=== PATIENT | female | born 1965 | race Caucasian/White ===

== ENCOUNTER 2024-06-03 12:27 | Outpatient (REF) | payer BC, SELFPAY ==
[2024-06-03 17:38] LABS: MANUAL DIFF FLAG NO
[2024-06-03 17:58] LABS: Basophils Percent Auto 0.8 % (0-2); Eosinophils Absolute Auto 0.1 X10*3/uL (0.0-0.4); Eosinophils Percent Auto 1.8 % (0-4); Hematocrit 37.5 % (37.0-47.0); Hemoglobin 12.5 g/dl (12.0-16.0); Imm Gran Abs Auto 0.01 X10*3/uL (0.00-0.03); Imm Gran Pct Auto 0.2 % (0.0-0.4); Lymphocytes Absolute Auto 1.5 X10*3/uL (1.2-4.9); Lymphocytes Percent Auto 31.2 % (20-40); Mean Corpuscular HGB Conc 33.3 g/dl (31.0-35.0); Mean Platelet Volume 10.6 fL (9.4-12.3); Monocytes Absolute Auto 0.4 X10*3/uL (0.1-1.2); Monocytes Percent Auto 8.5 % (2-11); Neutrophils Absolute Auto 2.8 x10*3/uL (2.0-8.3); Neutrophils Percent Auto 57.5 % (45-73); Platelet Count 267 X10*3/uL (160-400); Red Blood Count 4.31 X10*6/uL (4.20-5.50); Red Cell Distribution Width 12.8 % (11.0-16.0); White Blood Count 4.9 X10*3/uL (4.8-10.8)
[2024-06-03 18:00] LABS: Appearance Urine Clear; Color Urine Yellow; Glucose Urine UA Negative (Negative); Leukocyte Esterase Urine Negative (Negative); Nitrite Urine Negative (Negative); PH 7.5 (5.0-9.0); Urine Blood Negative (Negative); Urine Ketones Negative (Negative); Urine Protein Negative (Neg-Trace)
[2024-06-03 18:05] LABS: Bacteria Urine None Seen (None Seen); Hyaline Casts Urine 0-2 /LPF (0-2); RBC Urine 0-2 /HPF (0-2); Squamous Epithelial Cell Urine 0-2 /HPF (0-2); WBC Urine 0-5 /HPF (0-5)
[2024-06-03 18:11] LABS: Creatinine Urine 45.57 mg/dL; Total Protein Urine Random < 7 mg/dL (<12)
[2024-06-03 18:12] LABS: Alanine Aminotransferase 68 U/L (0-31); Aspartate Amino Transferase 54 U/L (5-31); C Reactive Protein < 0.04 mg/dL (< or = 0.50); Estimated Glomerular Filt Rate > 60
[2024-06-03 18:46] LABS: Erythrocyte Sedimentation Rate 7 MM/HR (0-20)
[2024-06-04 08:08] LABS: HBc Num1 0.06 S/CO (0.00-0.79); HBsAGNum1 0.43 S/CO (0.00-0.99); Hepatitis B Core Antibody Nonreactive (Nonreactive); Hepatitis B Surface Antigen Negative (Negative); ~HepC Num1 0.11 S/CO (0.00-0.79); ~Hepatitis B Surface Antibody REACTIVE (Nonreactive); ~Hepatitis C Antibody Nonreactive (Nonreactive)
[2024-06-05 11:24] LABS: Complement C3 111 mg/dL (83-193)
[2024-06-05 15:24] LABS: Anti DNA DS Antibody <1 IU/mL; SM/Ribonucleoprotein Ab <1.0 NEG AI (<1.0 NEG); Smith Protein <1.0 NEG AI (<1.0 NEG)
[2024-06-06 13:38] LABS: TS Negative Control Passed; TS Panel A 0; TS Panel B 1; TS Positive Control Passed; TSpotTB Negative (Negative)
[2024-06-07 14:08] LABS: DNAds, Crithidia Antibody Negative (Negative)
[2024-06-09 10:04] LABS: Anti Nuclear Antibody Screen POSITIVE (NEGATIVE)
== END 2024-06-03 12:28 | disposition home or self-care (01) ==
LOC: HO.HKASLDS 12:27
PROVIDERS: Visit Provider Internal Medicine Rheumatology
DX: M32.9 Systemic lupus erythematosus, unspecified (principal); Z79.60 Long term (current) use of unspecified immunomodulators and immunosuppressants
CPT/HCPCS: 36415; 81001; 82565; 82570; 84156; 84450; 84460; 85025; 85652; 86038; 86039; 86140; 86160; 86225; 86235; 86255; 86481; 86704; 86706; 86803; 87340

== ENCOUNTER 2024-06-03 12:27 | Outpatient (AMB) | payer BC, SELFPAY ==
--- NOTE | 2024-06-03 12:29 | MHC.OFFVIS ---
Vital Signs 06/03/24 12:31 Height 5 ft 5 in Weight 134 lb 8 oz BMI 22.4 BP 122/68 Blood Pressure Location Lt brachial Position Sitting Pulse 71 Pulse Source Pulse Oximeter Pulse Oximetry (%) 97 Oxygen Delivery Method Room Air Intake Visit Reasons: Lupus Allergies bee pollen Allergy (Unknown, Verified 06/03/24 12:35) Unknown Penicillins Allergy (Unknown, Verified 06/03/24 12:35) unk HPI HPI Lupus: Details: Last MTX dose January 26. She has not had recurrence of cutaneous lupus. She feels well on benlysta weekly SC injections and HCQ 300mg daily. Taking more effort to do things. 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 On two occasions she had tempratures 99.2F February and 99.8F. No oral ulcers. She had a ulceration in left nostril, which resolved. She continues to have malar rash, which Dermatology told her is remnant of a prior cutaneous lupus flare. She denies dyspnea, pleurisy, urinary symptoms and joint swelling. She has pain in left 3rd and 4th palmar aspect of MCPs with intermittent triggering. She had MRI of left shoulder and left elbow. Left elbow MRI reveals severe distal biceps tendinopathy/chronic partial tear with associated tenosynovitis or biceps radial bursitis. Mild common extensor origin tendinopathy without tear. Left shoulder MRI reveals high-grade partial-thickness bursal surface tear of the anterior insertional fibers of the supraspinatus. Full-thickness perforation is possible, given the fluid in the subacromial/subdeltoid space. If there is no full-thickness rotator cuff tear, then the subacromial/subdeltoid fluid may be explained by bursitis related to acromioclavicular osteoarthritis and os acromiale. She will be seeing orthopedic surgeons for this separate areas in the next 2 weeks. Review of Systems Const All systems reviewed & are unremarkable except as noted in HPI and below Physical Exam Vital Signs: Last Vital Signs Pulse 71 06/03/24 12:31 BP 122/68 06/03/24 12:31 Pulse Ox 97 06/03/24 12:31 Oxygen Delivery Method Room Air 06/03/24 12:31 BMI result Body Mass Index 22.4 Const Other: General: Comfortable CVS: RRR Respiratory: clear to auscultation bilaterally. Good respiratory effort Skin: Telangiectasia on cheeks present. She has a lesion that appears like a scab in her occipital scalp MSK: Tender left 3rd and 4th palmar aspect of MCP. No nodule present. No triggering observed. No synovitis of any joint. Good range of motion of upper extremities and lower extremities. Assessment & Plan Assessment & Plan (1) Discoid lupus erythematosus: Comment: Affecting face, scalp, upper extremities is controlled on Benlysta SC and hydroxychloroquine. 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 She also has a discoid lesion occipital scalp that has not improved with topical betamethasone. Code(s): L93.0 - Discoid lupus erythematosus Category: Medical Plan: Continue Benlysta subcutaneous injection weekly Continue hydroxychloroquine 300 mg daily. Requesting eye exam for hydroxychloroquine surveillance. After lab results are back, I will send 90 day prescription to her pharmacy Labs for systemic disease activity and drug monitoring ordered I have asked her to follow-up with Dermatology for consideration of topical tacrolimus to use on residual malar rash and for further topical management of discoid cutaneous lupus lesion on occipital scalp. Return to clinic in 3 months (2) Trigger finger of left hand: Comment: Left 3rd and 4th finger. She has had recurrence with intermittent triggering. We discussed conservative management. Code(s): M65.30 - Trigger finger, unspecified finger Category: Medical Plan: Continue to splinting Continue exercises learned from OT in the past. 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) use of unspecified immunomodulators and immunosuppressants Anti Extractable Nuclear Ag Today M32.9 - Systemic lupus erythematosus, unspecified Complement C3 Today M32.9 - Systemic lupus erythematosus, unspecified Complement C4 Today M32.9 - Systemic lupus erythematosus, unspecified UA w Microscopic Today M32.9 - Systemic lupus erythematosus, unspecified T Spot TB Today M32.9 - Systemic lupus erythematosus, unspecified C Reactive Protein Today M32.9 - Systemic lupus erythematosus, unspecified Alanine Aminotransferase Today Z79.60 - residential (current) use of unspecified immunomodulators and immunosuppressants Aspartate Amino Transferase Today Z79.60 - residential (current) use of unspecified immunomodulators and immunosuppressants Creatinine Today Z79.60 - watermelon harvesting supervisor (current) use of unspecified immunomodulators and immunosuppressants LC Reflex Titer and Pattern Today M32.9 - Systemic lupus erythematosus, unspecified Anti DNA DS Antibody Today M32.9 - Systemic lupus erythematosus, unspecified DNA Double Stranded-Crithidia Today M32.9 - Systemic lupus erythematosus, unspecified Protein Creatinine Ratio, Ur Today M32.9 - Systemic lupus erythematosus, unspecified Hepatitis B,C Profile Today M32.9 - Systemic lupus erythematosus, unspecified Medications: New belimumab (Benlysta) inject into upper thigh or abdomen; rotate sites PA needed for continuity of treatment. Patient has co-pay card (scanned in EMR). 200 mg subcut QWEEK 4 mL 2RF Coding Level of Care Code Est Pt Level 5 (79059) Complex EM visit Add On G2211 Diagnoses Discoid lupus erythematosus L93.0 Trigger finger of left hand M65.30 Time Spent (min) 40
--- OUTSIDE RECORDS SUMMARY | 2024-06-03 12:29 | XMS_ITS | Continuity of Care Document ---
Author Organization [place] - [facility], [facility] Address [address] [place] [address] Care Team Providers Care Learning Program Manager Name Role Phone CECY VALENTE Primary Care Provider Assessment Encounter Date Assessment Date Assessment LastModified by Organization Details LastModified Time 05/13/2024 05/13/2024 Patient has experienced a postnasal drip since March 2023. Her only relief comes from application of Breathe Right strips. When the strips are removed she feels she is unable to breathe through either side of the nose and her postnasal drip is debilitating. Her nasal airflow difficulties prevent her from exercising. When she began to discuss this she became visibly upset with tears that she is becoming older and not able to be as active as she wishes. Her physical exam shows again Breathe Right strips on her nose with a mild to moderate septal deflection to the left. Her experience of nasal congestion appears out of proportion to the degree of deviation of her septum. I would not anticipate a septoplasty or alar christos grafts would be adequate to overcome her sensations. Offered her second opinion with reference investigator in [place]. [email or web address] Not available 05/15/2024 10:41:45 Plan of Treatment Reminders Order Date Submit Date Provider Last Modified By Organization Details Last Modified Time Details Appointments None recorded. Lab None recorded. Referral rhinology referral - Referral for Deviated nasal septum. Thank you. 2023 024 [facility], [address], [address], [place], [address], 13:37:05 Procedures None recorded. Surgeries None recorded. Imaging None recorded. Medication Orders None recorded. Patient TargetsNo targets recorded. Patient InstructionsNo instructions recorded. Reason for Referral Rhinology Referral for Devia avinash nasal septum Referral for Deviated nasal septum. Thank you. Referring Physician: Grayson Lopez, Otolaryngology, Encounter Date: 05/13/2024 Problems Name Problem SNOMED Code Status Onset Date Resolution Date Notes Provider Name and Address Organization Details Recorded Time Feeling of lump in throat 016368496 Active 2023 GRAYSON LOPEZ MD [address] [place] [address],[place] [address], [place], [address], [place] - [facility] 4 11:14:11 Deviated nasal septum 355317763 Active 2023 GRAYSON LOPEZ MD [address] [place] [address],[place] [address], [place], [address], [place] [facility] 4 11:14:26 Incompetence of nasal valve 790928037 Active 2023 GRAYSON LOPEZ MD [address] [place] [address],[place] [address], [place], [address], [place] - [facility] 4 11:14:39 Problem Notes None recorded. Procedures Surgical History Date Name Laterality Status Provider Name and Address Organization Details Recorded Time 4 FOL_DP completed GRAYSON LOPEZ MD [address] [place] [address], [phone], [place] - [facility] 03/13/2024 11:13:59 2 Removal of ovarian cyst(s) completed Laurie Gonzales [place] [facility] 03/13/2024 10:48:29 Imaging Results None recorded. Procedure Notes None recorded. Medical Equipment None Reported. Allergies Allergen ID Allergen Name Allergen Category Reaction Reaction Severity Criticality Documentation Date Start Date Code Code System Note Provider Name and Address Organization Details Recorded Time [id number] grass pollen environme nt,medica tion Not available Not available Not available 05/13/2024 Radha parada [place] [facility] 4 10:35:41 Medications Name Sig Start Date Stop Date Status Note LastModified by Organization Details LastModified Time atorvastati n 40 mg tablet 05/13 completed Not Available Not Available Not Available atorvastati n 80 mg tablet active Not Available Not Available Not Available atorvastati n 20 mg tablet active Not Available Not Available Not Available methotrexat e sodium 25 mg/mL injection solution INJECT 15MG/0.6M L SUBCUTANE OUSLY ONCE A WEEK 03/13 completed Not Available Not Available Not Available tramadol 50 mg tablet TAKE 1 TABLET BY MOUTH EVERY 6 HOURS NEEDED FOR PAIN active Not Available Not Available No t Available BD Tuberculin Syringe 1 mL 27 x 1/2 USE ONE SYRINGE WEEKLY WITH METHOTREX ATE INJECTION . 05/13 completed Not Available Not Available Not Available betamethaso ne valerate 0.1 % topical cream APPLY TO AFFECTED AREA TWICE A DAY 03/13 completed Not Available Not Available Not Available nicotine 21 mg/24 hr daily transdermal patch APPLY 1 PATCH (21 MG TOTAL) DAILY. active Not Available Not Available No t Available folic acid 1 mg tablet TAKE 1 TABLET DAILY 03/13 completed Not Available Not Available Not Available mometasone 0.1 % topical ointment APPLY EXTERNALL Y ONCE DAILY NEEDED (RASH). 03/13 completed Not Available Not Available Not Available hydroxychlo roquine 200 mg tablet 300 mg every day by oral route. active Not Available Not Available No t Available epinephrine 0.3 mg/0.3 mL injection, auto-inject or INJECT 1 PEN INTRAMUSC ULARLY INTO ANTERIOR THIGH NEEDED SEVERE ALLERGIC REACTION AND GO TO ER 05/27 completed Not Available Not Available Not Available fluocinonid e 0.05 % topical solution APPLY EXTERNALL Y TWICE A DAY NEEDED (FLARES). 05/27 completed Not Available Not Available Not Available clobetasol 0.05 % scalp solution APPLY ONCE OR TWICE DAILY NEEDED TO SCALP. MINIMIZE CONTACT WITH FACE. 03/13 completed Not Available Not Available Not Available ipratropium bromide 21 mcg (0.03 %) nasal spray INSTILL 2 SPRAYS IN EACH NOSTRIL TWICE A DAY active Not Available Not Available No t Available ezetimibe 10 mg tablet TAKE 1 TABLET BY MOUTH EVERY DAY active Not Available Not Available No t Available varenicline tartrate 1 mg tablet TAKE 1 TABLET BY MOUTH TWICE A DAY 03/13 completed Not Available Not Available Not Available varenicline tartrate 0.5 mg (11)-1 mg (42) tablets in a dose pack PLEASE SEE ATTACHED FOR DETAILED DIRECTION S 03/13 completed Not Available Not Available Not Available Combivent Respimat 20 mcg-100 mcg/actuati on solution for inhalation active Not Available Not Available N ot Available Anoro Ellipta 62.5 mcg-25 mcg/actuati on powder for inhalation 03/13 completed Not Available Not Available Not Available Incruse Ellipta 62.5 mcg/actuati on powder for inhalation active Not Available Not Available N ot Available brimonidine 0.33 % topical gel with pump APPLY EXTERNALL Y DAILY. active Not Available Not Available No t Available Benlysta 200 mg/mL subcutaneou s syringe 05/09 completed Not Available Not Available Not Available Benlysta 200 mg/mL subcutaneou s auto-inject or 200 mL every week by sub-q route. 05/13 completed Not Available Not Available Not Available hydroxychlo roquine 300 mg tablet 05/13 completed Not Available Not Available Not Available Vitals Date Recorded Body height Body weight Provider Name and Address Organization Details Last Updated DateTime 05/13/2024 165.1 cm 53053.82 g Radha White [place] [facility] 05/13/2024 10:34:11 Social History None recorded. Functional Status None recorded. Mental Status None recorded. Family History Nothing Reported. Medical History Condition Response Allergies/Hayfever Y Heart Problems N Anxiety N Tonsil Infections N Emphysema Y Migraines N Thyroid Problems N Glaucoma N Developmental Delay N Depression N COPD Y Nasal or Sinus Problems Y Anemia N Immune System Disorder Y Anesthesia Complications N Heart Attack ([place]) N Other Skin Condition Y Diabetes N Rhinitis Y Bleeding Disorder N Food Allergy N Hearing Loss N Arthritis Y Hyperlipidemia N Cancer N Stroke N Dementia N Nasal polyps N Asthma N Sleep Disorder N High Cholesterol N GERD/Reflux N Liver Disease N Headaches N Fibromyalgia N Hypertension N Speech Delay N Kidney Disease N Gynecological HistoryNo gynecological history recorded. Obstetrics History GPAL:G 0 P 0 0 0 0 Past Encounters Encounter ID Performer Location Encounter Start Date Encounter Closed Date Diagnosis/Indication Diagnosis SNOMED-CT Code Diagnosis ICD10 Code Diagnosis Note [id number] GRAYSON LOPEZ MD [facility] [address] [place] [address] 05/13/2024 10:29:39 05/13/2024 11:38:23 Feeling of lump in throat [id number] R09.89 Incompeten ce of nasal valve 771608019 J34.89 Deviated nasal septum 12 8403964 J34.2 Health Concerns Section Related Observation LastModified by Organization Detai ls LastModified Time None Recorded Concern Status LastModified by Organization Details LastModified Time None Recorded Payers Encounter Date Sequence Insurance Name Policy Number Policy Webster Covered Member ID Webster Member ID Guarantor Name 05/13/2024 1 [facility] [id number] [facility] Notes Date Note Type Note Provider Name and Address Organization Details Recorded Time 05/13/2024 text/html PND onset 3uses cetirizine seasonallytobacco stopped summer 2023gets relief with use of breath right strip and ipratropiumwill only remove strip for a few hours per dayrecalls nose began to develop more crooked with tip to right a few years ago but denies any trauma 01/17/2024 ENT at [place], Dr. Holman1. Deviated nasal septum, offered nasal septal reconstruction and turbinate reduction. Also advised repeat RAST.2. Voice disturbance, fiberoptic laryngoscopy was benign. Symptoms were attributed to significant history of smoking.3. Thyroid nodule, repeat thyroid ultrasound was requested4. Mucus in throat, using Mucinex and Atrovent with some mild relief. 06/06/2023 thyroid ultrasound 12 mm nodule right side, TI RADS 1 12/13/2023 CT [facility] 5 mm. 01/30/2024 thyroid ultrasound at [facility] right thyroid nodule 12 mm, TI RADS 1 01/22/2024 [facility] [place] [facility], [place] grass 04/28/24 LDCT lung at [facility] cat 2 benign appearance or behavior 05/01/[address] Young at [facility]-line irregular, gastritis, biopsy shows reflux diseaseadvised PPI, nexium 20mg QD x 30 days, began 05/08/24 PV 03/13/24 John, normal FOLconcern was related to mucus from the nose, swelling of the nasal mucosa and a deviated septum. There was no nasal polyp appreciated on my examination. She does have a deflection of the septum to the left. Interestingly she was wearing a Breathe Right strip throughout the visit GRAYSON LOPEZ MD [address] [place] [address], [place], [address], [facility] - [facility] 05/15/2024 10:41:50 OBGyn Episode No OBEpisode recorded.
--- OUTSIDE RECORDS SUMMARY | 2024-06-03 12:29 | XMS_ITS | Data Portability ---
Author Organization [place] - [facility], Allergy Address [address] [address] Care Team Providers Care Test Eng Name Role Phone CECY VALENTE Primary Care Provider [phone] Assessment Encounter Date Assessment Date Assessment LastModified by Organization Details LastModified Time 03/13/2024 03/13/2024 Patient has high complexity concerns including persistent sensation of mucus in the throat with raspy voice quality. She is a former smoker having decreased from high volume smoking to cessation over the summer. Offered her the opportunity to have fiberoptic laryngoscopy today which was performed several months ago by her ear nose and throat in [place]. She was agreeable to the reevaluation. Fortunately this was benign with no pooling of secretions, vocal cord paralysis, or masses. Her second concern was related to mucus from the nose, swelling of the nasal mucosa and a deviated septum. There was no nasal polyp appreciated on my examination. She does have a deflection of the septum to the left. Interestingly she was wearing a Breathe Right strip throughout the visit and complained that if she removed it she would have immediate congestion of the nose. I believe this concern will be challenging to address and resolve. Offered her the opportunity to follow-up in 2 months to discuss this in more detail. She was agreeable but seemed moderately upset as she left the office. [email or web address] Not available 03/13/2024 11:17:04 05/13/2024 05/13/2024 Patient has experienced a postnasal [...] her sensations. Offered her second opinion with school director in [place]. [email or web address] Not available 05/15/2024 10:41:45 Plan of Treatment Reminders Order Date Submit Date Provider Last Modified By Organization Details Last Modified Time Details Appointments None recorded. Lab None recorded. Referral rhinology referral - Referral for Deviated nasal septum. Thank you. 2023 024 [facility], [address], [address], [place], [address], 13:37:05 Procedures None recorded. Surgeries None recorded. Imaging None recorded. Medication Orders None recorded. Patient TargetsNo targets recorded. Patient InstructionsNo instructions recorded. Reason for Referral Rhinology Referral for Devia avinash nasal septum Referral for Deviated nasal septum. Thank you. Referring Physician: Grayson Lopez, Otolaryngology, Encounter Date: 05/13/2024 Results Created Date Observation Date Name Description Value Unit Range Abnormal Flag Note LastModifiedBy Organization Detail LastModifiedTime 03/19/2012/13/2023 CT, neck, soft tissu e, w/ contr ast No observ ation record ed. [email or web address] Not Available 2023 12:33:34 03/19/20 24 06/06/2023 US, thyro id No observ ation record ed. [email or web address] Not Available 2023 12:33:34 03/19/20 24 01/30/2024 US, thyro id No observ ation record ed. [email or web address] Not Available 2023 12:33:34 Result Notes None recorded. Problems Name Problem SNOMED Code Status Onset Date Resolution Date Notes Provider Name and Address Organization Details Recorded Time Feeling of lump in throat 589200504 Active 2023 GRAYSON LOPEZ MD [address] [facility], [place], [address], [place] - [facility] 11:14:11 Deviated nasal septum 730954893 Active 2023 GRAYSON LOPEZ MD [address] [facility], [place], [address], [place] [facility] 4 11:14:26 Incompetence of nasal valve 839108455 Active 2023 GRAYSON LOPEZ MD [address] [facility], [place], [address], [place] [facility] 11:14:39 Problem Notes None recorded. Procedures Surgical History Date Name Laterality Status Provider Name and Address Organization Details Recorded Time FOL_DP completed GRAYSON LPOEZ MD [address] [address], [place], [address], [place] - [facility] 03/13/2024 11:13:59 2 Removal of ovarian cyst(s) completed Laurie Gonzales [place] - [facility] 03/13/2024 10:48:29 Imaging Results Imaging Date Name Status LastModified by Organiz ation Details LastModified Time 12/13/2023 CT, neck, soft tissue, w/ contrast completed Information not available 03/20/2024 12:33:34 06/06/2023 US, thyroid completed Information n ot available 03/20/2024 12:33:34 01/30/2024 US, thyroid completed Information n ot available 03/20/2024 12:33:34 Procedure Notes None recorded. Medical Equipment None Reported. Allergies Allergen ID Allergen Name Allergen Category Reaction Reaction Severity Criticality Documentation Date Start Date Code Code System Note Provider Name and Address Organization Details Recorded Time 542875 grass pollen environme nt,medica tion Not available Not available Not available 05/13/2024 Radha parada [place] - [facility] 4 10:35:41 Medications Name Sig Start Date [...] Available Vitals Date Recorded Body height Body mass index (BMI) Body weight Provider Name and Address Organization Details Last Updated DateTime 03/13/2024 165.1 cm 21.3 kg/m2 44807.82 g Laurie Gonzales [place] - [facility] 03/13/2024 10:45:08 Date Recorded Body height Body weight Provider Name and Address Organization Details Last Updated DateTime 05/13/2024 165.1 cm 65831.82 g Radha White [place] - [facility] 05/13/2024 10:34:11 Social History None recorded. Functional Status None recorded. Mental Status None recorded. Family History Nothing Reported. Medical History Condition Response Allergies/Hayfever Y Heart Problems N Anxiety N Tonsil Infections N Emphysema Y Migraines N Thyroid Problems N Depression N COPD Y Developmental Delay N Glaucoma N Nasal or Sinus Problems Y Anemia N Immune System Disorder Y Anesthesia Complications N Heart Attack (SC) N Other Skin Condition Y Diabetes N [...] SNOMED-CT Code Diagnosis ICD10 Code Diagnosis Note [id number] GRAYSON LOPEZ MD [facility] [address] [address] 03/13/2024 10:24:50 03/13/2024 11:16:14 Feeling of lump in throat 748604728 R09.89 Ex-smoker 3038747 Z87.89 1 Deviated nasal septum 12 7646737 J34.2 Incompeten ce of nasal valve 623190707 J34.89 [id number] GRAYSON LOPEZ MD [facility] [address] [place] [address] 05/13/2024 10:29:39 05/13/2024 11:38:23 Feeling of lump in throat 194967892 R09.89 Incompeten ce of nasal valve 591775745 J34.89 Deviated nasal septum 12 7439878 J34.2 Health Concerns Section Related Observation LastModified by Organization Detai ls LastModified Time None Recorded Concern Status LastModified by Organization Details LastModified Time None Recorded Advance Directives Directive None Recorded Payers Encounter Date Sequence Insurance Name Policy Number Policy Webster Covered Member ID Webster Member ID Guarantor Name 03/13/2024 1 [id number] [facility] 05/13/2024 1 [facility] [id number] [facility] Notes Date Note Type Note Provider Name and Address Organization Details Recorded Time 03/13/2024 text/html sore throatvoice is raspymild COPD,tobacco stopped summer 2023gets relief with use of breath right strip and ipratropium deviated septumPND onset 03/2023uses cetirizine seasonally 01/17/2024 ENT at [place], Dr. Holman1. Deviated nasal septum, offered nasal [...] LabcorElevated levels to [place] grass, [place] grass GRAYSON LOPEZ MD [address] [place] [address],[address], [address], [facility] - [facility] 03/13/2024 11:17:23 05/13/2024 text/html PND onset 3uses cetirizine seasonallytobacco stopped summer 2023gets relief with use of breath right strip and ipratropiumwill only remove strip for a few hours per dayrecalls nose began to develop more crooked with tip to right a few years ago but denies any trauma 01/17/2024 ENT at [place], Dr. Holman1. Deviated nasal septum, offered nasal [...] grass, [place] grass 04/28/24 LDCT lung at [facility] cat 2 benign appearance or behavior 05/01/[address] [facility] at [facility]-line irregular, gastritis, biopsy shows reflux diseaseadvised PPI, nexium 20mg QD x 30 days, began 05/08/24 PV 03/13/24 [place], normal FOLconcern was related to mucus from the nose, swelling of the nasal mucosa and a deviated septum. There was no nasal polyp appreciated on my examination. She does have a deflection of the septum to the left. Interestingly she was wearing a Breathe Right strip throughout the visit GRAYSON LOPEZ MD [address] [place] [address], [address], [facility] - [facility] 05/15/2024 10:41:50 OBGyn Episode No OBEpisode recorded.
--- OUTSIDE RECORDS SUMMARY | 2024-06-03 12:30 | XMS_ITS | Continuity of Care Document ---
Author Organization [place] - [facility], [facility] Address [address] [place] [address] Care Team Providers Care Physicians And Surgeons Name Role Phone HARRYVAMSHIGioCECY Primary Care Provider Assessment Encounter Date Assessment [...] by her ear nose and throat in [place]. She was agreeable to the reevaluation. Fortunately [...] the office. [email or web address] Not available 03/13/2024 11:17:04 Plan of Treatment Reminders Order Date Submit Date Provider Last Modified By Organization Details Last Modified Time Details Appointments None record ed. Lab None record ed. Referral None record ed. Procedures None record ed. Surgeries None record ed. Imaging None record ed. Medication Orders None record ed. Patient TargetsNo targets recorded. Patient InstructionsNo instructions recorded. Reason for Referral None Reported. Results Created Date Observation Date Name Description Value Unit Range Abnormal Flag Note LastModifiedBy Organization Detail LastModifiedTime 03/19/2012/13/2023 CT, neck, soft tissu e, w/ contr ast No observ ation record ed. [email or web address] Not Available 2023 12:33:34 03/19/20 24 06/06/2023 US, thyro id No observ ation record ed. [email or web address] Not Available 2023 12:33:34 03/19/2001/30/2024 US, thyro id No observ ation record ed. [email or web address] Not Available 2023 12:33:34 Result Notes None recorded. Problems Name Problem SNOMED Code Status Onset Date Resolution Date Notes Provider Name and Address Organization Details Recorded Time Feeling of lump in throat 088197719 Active 2023 ERWIN STAUFFER MD [address] [place] [address],[address] [address], [place], [address], [facility] 4 11:14:11 Deviated nasal septum 474756937 Active 2023 ERWIN STAUFFER MD [address] [address], [place], [address], [facility] 4 11:14:26 Incompetence of nasal valve 902246044 Active 2023 ERWIN STAUFFER MD [address] [place] [address], [place], [address], [facility] 4 11:14:39 Problem Notes None recorded. Procedures Surgical History Date Name Laterality Status Provider Name and Address Organization Details Recorded Time 4 FOL_DP completed ERWIN STAUFFER MD [address] [place] [address], [place], [address], [facility] 03/13/2024 11:13:59 2 Removal of ovarian cyst(s) completed Laurie Gonzales [facility] 03/13/2024 10:48:29 Imaging Results None recorded. Procedure Notes None recorded. Medical Equipment None Reported. Allergies Allergen ID Allergen Name Allergen Category Reaction Reaction Severity Criticality Documentation Date Start Date Code Code System Note Provider Name and Address Organization Details Recorded Time 349772 grass pollen environme nt,medica tion Not available Not available Not available 05/13/2024 Radha parada [place] - [facility] 4 10:35:41 Medications Name Sig Start [...] Updated DateTime 03/13/2024 165.1 cm 21.3 kg/m2 52241.82 g Laurie Gonzales [place] - [facility] 03/13/2024 10:45:08 Social History None recorded. Functional Status None recorded. Mental Status None recorded. Family History Nothing Reported. Medical History Condition Response Allergies/Hayfever Y Heart Problems N Anxiety N Tonsil Infections N Emphysema Y Migraines N Thyroid Problems N Glaucoma N Depression N COPD Y Developmental Delay N Nasal or Sinus Problems Y Anemia N Immune System Disorder Y Anesthesia Complications N Heart Attack (IA) N Other Skin Condition Y Diabetes N Rhinitis Y Bleeding Disorder N Food Allergy N Arthritis Y Hearing Loss N Hyperlipidemia N Cancer N Stroke N Dementia N Nasal polyps N Asthma N Sleep Disorder N GERD/Reflux N High Cholesterol N Liver Disease N Headaches N Fibromyalgia N Hypertension N Speech Delay N Kidney Disease N Gynecological HistoryNo gynecological history recorded. Obstetrics History GPAL:G 0 P 0 0 0 0 Past Encounters Encounter ID Performer Location Encounter Start Date Encounter Closed Date Diagnosis/Indication Diagnosis SNOMED-CT Code Diagnosis ICD10 Code Diagnosis Note [id number] ERWIN STAUFFER MD [facility] [address] [address] 03/13/2024 10:24:50 03/13/2024 11:16:14 Feeling of lump in throat 043935214 R09.89 Ex-smoker 4814852 Z87.89 1 Deviated nasal septum 12 5765008 J34.2 Incompeten ce of nasal valve 248827380 J34.89 Health Concerns Section Related Observation LastModified by Organization Detai ls LastModified Time None Recorded Concern Status LastModified by Organization Details LastModified Time None Recorded Payers Encounter Date Sequence Insurance Name Policy Number Policy Webster Covered Member ID Webster Member ID Guarantor Name 03/13/2024 1 [facility] [id number] [facility] Notes Date Note Type Note Provider Name and Address Organization Details Recorded Time 03/13/2024 text/html sore throatvoice is raspymild COPD,tobacco stopped summer 2023gets relief with use of breath right strip and ipratropium deviated septumPND onset 03/2023uses cetirizine seasonally 01/17/2024 ENT at [place], Dr. Holman1. Deviated nasal septum, offered nasal [...] 1 12/13/2023 CT neck with contrast at [facility] thyroid nodule 9 x 5 mm. 01/30/2024 thyroid ultrasound at [facility] right thyroid nodule 12 mm, TI RADS 1 01/22/2024 RAST at LabcorElevated levels to [place] Collins MD [address] [place] [address], [address], [facility] - [facility] 03/13/2024 11:17:23 OBGyn Episode No OBEpisode recorded.
--- OUTSIDE RECORDS SUMMARY | 2024-06-03 12:30 | XMS_ITS | Continuity of Care Document ---
Author Organization [facility] Address [address] [place] [address]- Care Team Providers Care [employer] Superintendent Name Role Phone Fausto Hong MD Primary Care Physician [phone] Encounter [facility] Date(s): 04/10/24 - 05/10/24 [facility] [address] [address]- Encounter Type: Triage Allergies, Adverse Reactions, Alerts Substance Criticality Severity Reaction Reaction Severity Status penicillin Active Problem List Condition Confirmation Course Effective Dates Status H ealth Status Informant Ground glass opacity present on imaging of lung Confirmed Active Anxiety Confirmed Active Calcification of coronary artery Confirmed Active Centrilobular emphysema Confirmed Active Chronic obstructive pulmonary disease Confirmed Active Discoid lupus erythematosus Confirmed Active Seasonal allergic rhinitis Confirmed Active Cigarette nicotine dependence in remission Confirmed Active Patient Care team information Care Team Personnel Name: Fausto Hong MD Position: Reference Physician Member Role: PCP Address: [address] [place] [id number] Telecom: Care Team Related Persons Name: BRE STRINGER Name: ANDREW STRINGER Insurance Providers Guarantor name: TERRI VELÁZQUEZ Health Plan Information #: 1 [facility] Member Number: NA Policy Number: NA Group Number: NA
[2024-06-03 12:31] VITALS: BP 122/68; PULSE 71; O2SAT 97; BMI 22.4
== END 2024-06-03 13:32 | disposition home or self-care (01) ==
PROVIDERS: Visit Provider Internal Medicine Rheumatology
DX: L93.0 Discoid lupus erythematosus (principal); M65.30 Trigger finger, unspecified finger
CPT/HCPCS: 99215

== ENCOUNTER 2024-09-01 10:21 | Outpatient (AMB) | payer BC, SELFPAY ==
--- NOTE | 2024-09-01 10:32 | A.OFFVIS_ITS ---
Vital Signs 09/01/24 10:41 Height 5 ft 5 in Weight 138 lb 14.259 oz BMI 23.1 BP 98/54 L Blood Pressure Location Rt brachial Position Sitting Pulse 76 Pulse Source Pulse Oximeter Pulse Oximetry (%) 96 Oxygen Delivery Method Room Air Intake Visit Reasons: 3 mo follow up Intake Note: Pt states that she is here for a follow up for discoid lupus. Pt states that he would also like to have a cortisone injection on her left trigger fingers. Allergies bee pollen Allergy (Unknown, Verified 09/01/24 10:45) Unknown Penicillins Allergy (Unknown, Verified 09/01/24 10:45) unk HPI HPI 3 mo follow up: Details: She had surgery to repair left rotator cuff tendon and tendon rupture of left elbow. She is recovering well. Ten days postop she developed new lesions on the tips of her fingers with changes in her skin. She started applying topical steroid 2 to 3 times a day with benefit. No new lesions have reoccurred. She continues to have malar erythema without progression. No new lesions on her extremities or ears. Denies fevers, dyspnea, pleurisy, chest pain, urinary symptoms, oral ulcers, Raynaud's phenomenon. She continues to have triggering of left 3rd finger. [facility] Surgical History (Updated 09/01/24 @ 10:43 by Myesha Livingston [facility]) History of arthroscopy of left shoulder Review of Systems Const All systems reviewed & are unremarkable except as noted in HPI and below Physical Exam Vital Signs: Last Vital Signs Pulse 76 09/01/24 10:41 BP 98/54 L 09/01/24 10:41 Pulse Ox 96 09/01/24 10:41 Oxygen Delivery Method Room Air 09/01/24 10:41 BMI result Body Mass Index 23.1 Const Other: General: Comfortable CVS: RRR Respiratory: clear to auscultation bilaterally. Good respiratory effort Skin: Telangiectasia on cheeks present. She has a lesion that appears like a scab in her occipital scalp MSK: Tender left 3rd palmar aspect of MCP. No nodule present. No triggering observed. No synovitis of any joint. Left arm is in a sling. Office Procedures AMB Tendon Injection Tendon Injection Details: Trigger finger left 3rd Prep: site was prepped using aseptic technique Injected: 10 mg of, Kenalog, with 0.25 mL of and 1% plain lidocaine Procedure: The patient tolerated the procedure well. Postprocedure protocol was discussed with patient. 28120-Clwicw Tendon Sheath Injection All charges added?: Procedure code (CPT) selection complete Office Meds Kenalog 40 mg/mL suspension for injection Performing Provider: Peña Boyce MD Performing Location[place] [facility] Administered by: Peña Boyce MD on 09/01/24 22:44 Dose Route Admin Location Dispensed Lot Number Expiration Date [facility] Power Operator 10 mg Tendon Sheath Inj. 1 mL AP [id number] [facility] [employer] [facility] lidocaine (PF) 10 mg/mL (1 %) injection solution Performing Provider: Peña Boyce MD Performing Location: [facility] Administered by: Peña Boyce MD on 09/01/24 22:44 Dose Route Admin Location Dispensed Lot Number Expiration Date [facility] Power Operator 0.25 mL Infiltration 2 mL [id number] [facility] Assessment & Plan Assessment & Plan (1) Discoid lupus erythematosus: Comment: Affecting face, scalp, ears, upper extremities is controlled on Benlysta SC and hydroxychloroquine. 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 She also has a discoid lesion occipital scalp that has not improved with topical betamethasone. She does not have serological activity indicating systemic lupus erythematosus. After her left shoulder and left elbow tendon repair surgery, she had mild flare involving her fingertips that resolved with topical steroid. Rheumatology history: LC negative. Diagnosed on skin biopsy 09/2020 (Dermatology at [facility]). HCQ 09/2020-. failed methotrexate SC ([id number]) combination with hydroxychloroquine and she had transaminitis secondary to methotrexate use. Benlysta 08/2023-. Code(s): L93.0 - Discoid lupus erythematosus Category: Medical Plan: I have ordered labs to assess for systemic activity from lupus Continue subcutaneous Benlysta injection every week Continue hydroxychloroquine 300 mg daily. 08/14/2022 OCT and VF wnl. 02/11/2023 OCT wnl. 04/2024 VF 1 area of increased threshold left. [facility] Return to clinic in 3 months (2) Systemic lupus erythematosus: Code(s): M32.9 - Systemic lupus erythematosus, unspecified Category: Medical Qualifiers: Systemic lupus erythematosus organ involvement: unspecified Systemic lupus erythematosus type: unspecified Qualified Code(s): M32.9 - Systemic lupus erythematosus, unspecified Plan: Monitoring as above (3) Trigger finger of left hand: Comment: Left 3rd finger failed conservative management with splinting and exercises at home. History: L 3rd and 4th trigger finger cortisone injection October 2023. Code(s): M65.30 - Trigger finger, unspecified finger Category: Medical Qualifiers: Trigger finger location: middle finger Qualified Code(s): M65.332 - Trigger finger, left middle finger Plan: Patient received cortisone injection to treat left 3rd trigger finger Return to clinic in 3 months Orders: Orders Alanine Aminotransferase Today Z79.60 - retirement (current) use of unspecified immunomodulators and immunosuppressants Erythrocyte Sedimentation Rate Today L93.0 - Discoid lupus erythematosus, M32.9 - Systemic lupus erythematosus, unspecified Complement C4 Today L93.0 - Discoid lupus erythematosus, M32.9 - Systemic lupus erythematosus, unspecified Complement C3 Today L93.0 - Discoid lupus erythematosus, M32.9 - Systemic lupus erythematosus, unspecified AMB Tendon Injection Today M65.30 - Trigger finger, unspecified finger Aspartate Amino Transferase Today Z79.60 - terminal block assembler (current) use of unspecified immunomodulators and immunosuppressants Complete Blood Count Auto Diff Today Z79.60 - terminal block assembler (current) use of unspecified immunomodulators and immunosuppressants Creatinine Today Z79.60 - terminal block assembler (current) use of unspecified immunomo dulators and immunosuppressants C Reactive Protein Today L93.0 - Discoid lupus erythematosus, M32.9 - Systemic lupus erythematosus, unspecified Anti DNA DS Antibody Today L93.0 - Discoid lupus erythematosus, M32.9 - Systemic lupus erythematosus, unspecified Protein Creatinine Ratio, Ur Today L93.0 - Discoid lupus erythematosus, M32.9 - Systemic lupus erythematosus, unspecified UA w Microscopic Today L93.0 - Discoid lupus erythematosus, M32.9 - Systemic lupus erythematosus, unspecified Coding Level of Care Code Est Pt Level 5 (95505) Complex EM visit Add On G2211 Diagnoses Discoid lupus erythematosus L93.0 Systemic lupus erythematosus, unspecified SLE type, unspecified organ involvement status M32.9 Systemic lupus erythematosus organ involvement: unspecified Systemic lupus erythematosus type: unspecified Trigger middle finger of left hand M65.332 Trigger finger location: middle finger CPT Codes Tendon Injection - Tendon Injection 1: 43199-Bjqfiy Tendon Sheath Injection ([id number]) Time Spent (min) 46
[2024-09-01 10:41] VITALS: BP 98/54; PULSE 76; O2SAT 96; BMI 23.1
--- OUTSIDE RECORDS SUMMARY | 2024-09-01 12:17 | XMS_ITS | Data Portability ---
Author Organization [place] - [facility], Allergy Address [address] [address] Care Team Providers Care Equal Opportunity Counselor Name Role Phone CECY VALENTE Primary Care Provider [phone] Assessment Encounter Date Assessment Date Assessment LastModified [...] by her ear nose and throat in [place]. She was agreeable to the reevaluation. Fortunately [...] her sensations. Offered her second opinion with die operator in [place]. [email or web address] Not available 05/15/2024 10:41:45 Plan of Treatment Reminders Order Date Submit Date Provider Last Modified By Organization Details Last Modified Time Details Appointments None recorded. Lab None recorded. Referral rhinology referral - Referral for Deviated nasal septum. Thank you. 2023 024 [email or web address] [facility], [address], [address], [place], [address], 17:00:04 Procedures None recorded. Surgeries None recorded. Imaging [...] record ed. [email or web address] Not Available 2023 12:33:34 03/19/2006/06/2023 [place], thyro id No observ ation record ed. [email or web address] Not Available 2023 12:33:34 03/19/2001/30/2024 [place], thyro id No observ ation record ed. [email or web address] Not Available 2023 12:33:34 Result Notes None recorded. Problems Name Problem SNOMED Code Status Onset Date Resolution Date Notes Provider Name and Address Organization Details Recorded Time Feeling of lump in throat 978725909 Active 2023 GRAYSON LOPEZ MD 100 [facility], [address], [place], [address], [place] - [facility] 11:14:11 Deviated nasal septum 038698354 Active 2023 GRAYSON LOPEZ MD 100 [facility] 100, [place], [address], [place] [facility] 4 11:14:26 Incompetence of nasal valve 700832213 Active 2023 GRAYSON LOPEZ MD 100 [facility] 100, [place], [address], [place] [facility] 11:14:39 Problem Notes None recorded. Procedures Surgical History Date Name Laterality Status Provider Name and Address Organization Details Recorded Time FOL_DP completed GRAYSON LOPEZ MD [address] [address], [place], [address], [facility] - [facility] 03/13/2024 11:13:59 2 Removal of ovarian cyst(s) completed Laurie Gonzales [place] - [facility] 03/13/2024 10:48:29 Imaging Results Imaging Date Name [...] Name and Address Organization Details Recorded Time 076748 grass pollen environme nt,medica tion Not available Not available Not available 05/13/2024 [id number] ERMELINDAK Radha parada [facility] 10:35:41 Medications Name Sig Start Date Stop [...] Updated DateTime 03/13/2024 165.1 cm 21.3 kg/m2 06831.82 g Laurie Gonzales [place] [facility] 03/13/2024 10:45:08 Date Recorded Body height Body weight Provider Name and Address Organization Details Last Updated DateTime 05/13/2024 165.1 cm 18560.82 g Radha White [place] [facility] 05/13/2024 10:34:11 Social History None recorded. [...] Disorder Y Anesthesia Complications N Heart Attack (OK) N Other Skin Condition Y Diabetes N Rhinitis Y Bleeding Disorder N Food Allergy N Arthritis Y Hearing Loss N Hyperlipidemia N Cancer N Stroke N Dementia N Nasal polyps N Asthma N High Cholesterol N Sleep Disorder N GERD/Reflux N Liver Disease N Headaches N Fibromyalgia N Hypertension N Speech Delay N Kidney Disease N Gynecological HistoryNo gynecological history recorded. Obstetrics History GPAL:G 0 P 0 0 0 0 Past Encounters Encounter ID Performer Location Encounter Start Date Encounter Closed Date Diagnosis/Indication Diagnosis SNOMED-CT Code Diagnosis ICD10 Code Diagnosis Note [id number] GRAYSON LOPEZ MD [facility] [address] [address] 03/13/2024 10:24:50 03/13/2024 11:16:14 Feeling of lump in throat 428316958 R09.89 Ex-smoker 4006028 Z87.89 1 Deviated nasal septum 12 2984130 J34.2 Incompeten ce of nasal valve 095727210 J34.89 [id number] GRAYSON LOPEZ MD [facility] [address] [address] 05/13/2024 10:29:39 05/13/2024 11:38:23 Feeling of lump in throat 603237777 R09.89 Incompeten ce of nasal valve 993040063 J34.89 Deviated nasal septum 12 7006072 J34.2 Health Concerns Section Related Observation LastModified by Organization Detai ls LastModified Time None Recorded Concern Status LastModified by Organization Details LastModified Time None Recorded Advance Directives Directive None Recorded Payers Encounter Date Sequence Insurance Name Policy Number Policy Webster Covered Member ID Webster Member ID Guarantor Name 03/13/2024 1 [facility] [id number] Lashell Janeth 05/13/2024 1 [facility] [id number] [facility] Notes Date Note Type Note Provider Name and Address Organization Details Recorded Time 03/13/2024 text/html sore throatvoice is raspymild COPD,tobacco stopped summer 2023gets relief with use of breath right strip and ipratropium deviated septumPND onset 03/2023uses cetirizine seasonally 01[place] [facility] [place] [place] Deviated nasal septum, offered nasal septal [...] [place] grass, [place] grass GRAYSON LOPEZ MD [address] [place] [address], [address], [facility] - [facility] 03/13/2024 11:17:23 05/13/2024 text/html PND onset 3uses cetirizine seasonallytobacco stopped summer 2023gets relief with use of breath right strip and ipratropiumwill only remove strip for a few hours per dayrecalls nose began to develop more crooked with tip to right a few years ago but denies any trauma 01/17/2024 ENT at [place], Dr. Holman1. Deviated nasal septum, offered nasal [...] grass, [place] grass 04/28/24 LDCT lung at [facility] cat 2 benign appearance or behavior 05/01/[address] [facility] at [facility]-line irregular, gastritis, biopsy shows reflux [...] strip throughout the visit GRAYSON LOPEZ MD [address] [place] [address], [place], [address], [facility] - [facility] 05/15/2024 10:41:50 OBGyn Episode No OBEpisode recorded.
--- OUTSIDE RECORDS SUMMARY | 2024-09-01 12:17 | XMS_ITS | Clinical Summary ---
Author Organization [employer] Address [address] [place] [address] [address] [place] [address] Care Team Providers Care Bagging Salvager Name Role Phone Gabriela Ambrose Unavailable Unavailable Social History Tobacco Use Types Packs/Day Years Used Date Smoking Tobacco: Never Assessed Comments Unknown Sex and Gender Information Value Date Recorded Sex Assigned at Not on file Legal Sex Female 5:31 PM EST Gender Identity Not on file Sexual Orientation Not on file Plan of Treatment Health Maintenance Due Date Last Done Comments CT Colonography 1963 Colonoscopy 1963 Colorectal Cancer Screening 1963 Depression Screening 1963 FIT DNA/Cologuard 1963 FIT 1963 FOBT 1963 Sigmoidoscopy 1963 Alcohol/Substance Use Screening 1975 Tobacco Screening 1975 Pap Smear 01/12/1984 Cervical Cancer Screening 1993 HPV/Cotest 1993 Mammogram 07/31/2024 07/31/2022, 0311/2022, 01/22/2022, Additional history exists DTaP/Tdap/Td Vaccines (2 - Td or Tdap) 08/26/2028 08/26/2018, 07/19/2004 RSV Patients and Patients Aged 60 years or older (1 - 1-dose 75+ series) 2038 Zoster Vaccines Completed 11/13/2018, 08/26/2018 Pneumococcal Vaccine: 50+ Years Completed 01/19/2022, 01/31/2018 COVID-19 Vaccine Completed 01/31/2024, , 03/02/2022, Additional history exists Influenza Vaccine Completed 01/31/2024, , 01/19/2022, Additional history exists HIB Vaccines Aged Out No longer eligi ble based on patient's age to complete this topic HPV Vaccines Aged Out No longer eligi ble based on patient's age to complete this topic Hepatitis A Vaccines Aged Out No long er eligible based on patient's age to complete this topic Hepatitis B Vaccines Aged Out No long er eligible based on patient's age to complete this topic IPV Vaccines Aged Out No longer eligi ble based on patient's age to complete this topic Meningococcal Vaccine Aged Out No clau carmelo eligible based on patient's age to complete this topic RSV under 20 months Aged Out No longe r eligible based on patient's age to complete this topic Rotavirus Vaccines Aged Out No longer eligible based on patient's age to complete this topic Care Teams Bagging Salvager Relationship Specialty Start Date End Date Gabriela Ambrose Community Health Worker 07/04/22
== END 2024-09-01 11:57 | disposition home or self-care (01) ==
PROVIDERS: Visit Provider Internal Medicine Rheumatology
DX: M32.9 Systemic lupus erythematosus, unspecified (principal); M65.332 Trigger finger, left middle finger; M65.30 Trigger finger, unspecified finger
CPT/HCPCS: 20550; 99215

== ENCOUNTER → 2024-09-01 10:21 | Outpatient (BNVA) | payer BC, SELFPAY | PROVIDERS: Visit Provider Internal Medicine Rheumatology | DX: L93.0 Discoid lupus erythematosus (principal); M32.9 Systemic lupus erythematosus, unspecified | CPT/HCPCS: 20550; J2003; J3300 ==

== ENCOUNTER 2024-12-29 09:58 | Outpatient (AMB) | payer BC, SELFPAY ==
--- NOTE | 2024-12-29 10:03 | MHC.OFFVIS ---
Vital Signs 12/29/24 10:06 Height 5 ft 5 in Weight 130 lb 6 oz BMI 21.7 BP 100/70 Blood Pressure Location Lt brachial Position Sitting Pulse 65 Pulse Source Pulse Oximeter Pulse Oximetry (%) 98 Oxygen Delivery Method Room Air Intake Visit Reasons: 3 months Intake Note: Pt states that she is here for a follow up for discoid lupus. Accompanied by: Self / Same As Patient Allergies bee pollen Allergy (Unknown, Verified 12/29/24 10:08) Unknown Penicillins Allergy (Unknown, Verified 12/29/24 10:08) unk HPI HPI 3 months: Details: Trigger finger left hand improved with cortisone injection. Reoccurred a week ago but it is not getting stuck. She is doing PT exercises. She is not wearing splint. July - left shoulder replacement. SHe has full ROM. She is participating in PT. 4 weeks after surgery cuticle spited. Denies any new rash, oral ulcers, Raynaud's phenomenon, fevers, dyspnea, pleurisy, urinary symptoms. No new joint swelling. She had an x-ray of left hip, which revealed moderate osteoarthritis. She also had an x-ray of her left knee, which reveals that hardware has been broken and wedged in between her joint. She will be seeing orthopedic surgeon for consideration of surgical procedure to remove displaced hardware. She is experiencing pain in her left knee. She has osteopenia on prior bone density, which was done last in 2022. [facility] Surgical History History of arthroscopy of left shoulder Physical Exam Vital Signs: Last Vital Signs Pulse 65 12/29/24 10:06 BP 100/70 12/29/24 10:06 Pulse Ox 98 12/29/24 10:06 Oxygen Delivery Method Room Air 12/29/24 10:06 BMI result Body Mass Index 21.7 Const Other: General: Comfortable CVS: RRR Respiratory: clear to auscultation bilaterally. Good respiratory effort Skin: Telangiectasia on cheeks present. MSK: Tender left 3rd palmar aspect of MCP. No nodule present. No triggering observed. No synovitis of any joint. Left arm internal rotation is not full. Rest of range of motion joint exam is normal. Assessment & Plan Assessment & Plan (1) Discoid lupus erythematosus: Comment: Affecting face, scalp, ears, upper extremities is controlled on Benlysta SC and hydroxychloroquine. 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 She also has a discoid lesion occipital scalp that has not improved with topical betamethasone. She does not have clinical signs of systemic SLE. Labs from August 2024 reveal hypocomplementemia, which correlates with patient having cutaneous lupus flare. Rheumatology history: LC negative. Diagnosed on skin biopsy 09/2020 (Dermatology at [facility]). HCQ 09/2020-. failed methotrexate SC ([id number]) combination with hydroxychloroquine and she had transaminitis secondary to methotrexate use. Benlysta 08/2023-. Code(s): L93.0 - Discoid lupus erythematosus Category: Medical Plan: I have ordered labs to assess for systemic activity from lupus for next set of labs. Lab requisition will be faxed to patient's local lab per patient's request Labs for drug monitoring on high-risk medication due every 3 months. Lab requisition we will be fax to patient's local lab per patient's request Continue subcutaneous Benlysta injection every week Continue hydroxychloroquine 300 mg daily. 08/14/2022 OCT and VF wnl. 02/11/2023 OCT wnl. 04/2024 OCT ok, VF 1 area of increased threshold left. She has f/u every 6 months. Return to clinic in 3 to 4 months (2) Systemic lupus erythematosus: Code(s): M32.9 - Systemic lupus erythematosus, unspecified Category: Medical Qualifiers: Systemic lupus erythematosus organ involvement: unspecified Systemic lupus erythematosus type: unspecified Qualified Code(s): M32.9 - Systemic lupus erythematosus, unspecified Plan: Monitoring as above (3) Trigger finger of left hand: Comment: Initially resolved with cortisone injection from August 2024. Recurrent but tolerable. History: L 3rd and 4th trigger finger cortisone injection October 2023. Left 3rd trigger finger cortisone injection August 2024. Code(s): M65.30 - Trigger finger, unspecified finger Category: Medical Qualifiers: Trigger finger location: middle finger Qualified Code(s): M65.332 - Trigger finger, left middle finger Plan: Patient will try splinting at night Continue PT exercises learned from the past Return to clinic in 3-4 months (4) Osteopenia: Code(s): M85.80 - Other specified disorders of bone density and structure, unspecified site Category: Medical Qualifiers: Osteopenia location: unspecified Qualified Code(s): M85.80 - Other specified disorders of bone density and structure, unspecified site Plan: Recommend repeat bone density every 2 years. Patient will follow up with PCP Orders: Orders Complete Blood Count Auto Diff Today Z79.899 - Other chcf (current) drug therapy Complete Blood Count Auto Diff Today Z79.899 - Other dedicated intermodal truck driver (current) drug therapy Complete Blood Count Auto Diff 06/27/25 Z79.899 - Other dedicated intermodal truck driver (current) drug therapy Complete Blood Count Auto Diff 09/25/25 Z79.899 - Other chcf (current) drug therapy Complete Blood Count Auto Diff 12/24/25 Z79.899 - Other dedicated intermodal truck driver (current) drug therapy Complete Blood Count Auto Diff 03/24/26 Z79.899 - Other chcf (current) drug therapy Complete Blood Count Auto Diff 06/22/26 Z79.899 - Other chcf (current) drug therapy Complete Blood Count Auto Diff 09/20/26 Z79.899 - Other chcf (current) drug therapy Alanine Aminotransferase Today Z79.899 - Other chcf (current) drug therapy Alanine Aminotransferase 03/29/25 Z79.899 - Other chcf (current) drug therapy Alanine Aminotransferase 09/25/25 Z79.899 - Other dedicated intermodal truck driver (current) drug therapy Alanine Aminotransferase 06/22/26 Z79.899 - Other chcf (current) drug therapy Alanine Aminotransferase 09/20/26 Z79.899 - Other chcf (current) drug therapy Aspartate Amino Transferase Today Z79.899 - Other dedicated intermodal truck driver (current) drug therapy Aspartate Amino Transferase 03/29/25 Z79.899 - Other chcf (current) drug therapy Aspartate Amino Transferase 09/25/25 Z79.899 - Other dedicated intermodal truck driver (current) drug therapy Aspartate Amino Transferase 06/22/26 Z79.899 - Other chcf (current) drug therapy Aspartate Amino Transferase 09/20/26 Z79.899 - Other dedicated intermodal truck driver (current) drug therapy Creatinine 03/24/26 Z79.899 - Other dedicated intermodal truck driver (current) drug therapy Creatinine 06/22/26 Z79.899 - Other dedicated intermodal truck driver (current) drug therapy C Reactive Protein 03/29/25 Z79.899 - Other dedicated intermodal truck driver (current) drug therapy C Reactive Protein 09/25/25 Z79.899 - Other dedicated intermodal truck driver (current) drug therapy C Reactive Protein 06/22/26 Z79.899 - Other dedicated intermodal truck driver (current) drug therapy Erythrocyte Sedimentation Rate Today Z79.899 - Other dedicated intermodal truck driver (current) drug therapy Erythrocyte Sedimentation Rate 03/29/25 Z79.899 - Other dedicated intermodal truck driver (current) drug therapy Erythrocyte Sedimentation Rate 06/27/25 Z79.899 - Other chcf (current) drug therapy Erythrocyte Sedimentation Rate 09/25/25 Z79.899 - Other dedicated intermodal truck driver (current) drug therapy Erythrocyte Sedimentation Rate 12/24/25 Z79.899 - Other dedicated intermodal truck driver (current) drug therapy Erythrocyte Sedimentation Rate 03/24/26 Z79.899 - Other chcf (current) drug therapy Erythrocyte Sedimentation Rate 06/22/26 Z79.899 - Other chcf (current) drug therapy Complement C3 2 Months M32.9 - Systemic lupus erythematosus, unspecified Anti DNA DS Antibody 2 Months M32.9 - Systemic lupus erythematosus, unspecified Alanine Aminotransferase Today Z79.899 - Other chcf (current) drug therapy Aspartate Amino Transferase Today Z79.899 - Other chcf (current) drug therapy Creatinine Today Z79.899 - Other dedicated intermodal truck driver (current) drug therapy C Reactive Protein Today Z79.899 - Other dedicated intermodal truck driver (current) drug therapy Erythrocyte Sedimentation Rate Today Z79.899 - Other dedicated intermodal truck driver (current) drug therapy Complete Blood Count Auto Diff 03/29/25 Z79.899 - Other chcf (current) drug therapy Alanine Aminotransferase 06/27/25 Z79.899 - Other chcf (current) drug therapy Alanine Aminotransferase 12/24/25 Z79.899 - Other chcf (current) drug therapy Alanine Aminotransferase 03/24/26 Z79.899 - Other chcf (current) drug therapy Aspartate Amino Transferase 06/27/25 Z79.899 - Other chcf (current) drug therapy Aspartate Amino Transferase 12/24/25 Z79.899 - Other chcf (current) drug therapy Aspartate Amino Transferase 03/24/26 Z79.899 - Other chcf (current) drug therapy Creatinine Today Z79.899 - Other chcf (current) drug therapy Creatinine 03/29/25 Z79.899 - Other chcf (current) drug therapy Creatinine 06/27/25 Z79.899 - Other dedicated intermodal truck driver (current) drug therapy Creatinine 09/25/25 Z79.899 - Other dedicated intermodal truck driver (current) drug therapy Creatinine 12/24/25 Z79.899 - Other dedicated intermodal truck driver (current) drug therapy Creatinine 09/20/26 Z79.899 - Other dedicated intermodal truck driver (current) drug therapy C Reactive Protein Today Z79.899 - Other chcf (current) drug therapy C Reactive Protein 06/27/25 Z79.899 - Other chcf (current) drug therapy C Reactive Protein 12/24/25 Z79.899 - Other chcf (current) drug therapy C Reactive Protein 03/24/26 Z79.899 - Other chcf (current) drug therapy C Reactive Protein 09/20/26 Z79.899 - Other dedicated intermodal truck driver (current) drug therapy Erythrocyte Sedimentation Rate 09/20/26 Z79.899 - Other chcf (current) drug therapy Complement C4 2 Months M32.9 - Systemic lupus erythematosus, unspecified UA ClnCatch+Micro w/rflx Cult 2 Months M32.9 - Systemic lupus erythematosus, unspecified Coding Level of Care Code Est Pt Level 4 (84964) Complex EM visit Add On G2211 Diagnoses Discoid lupus erythematosus L93.0 Systemic lupus erythematosus, unspecified SLE type, unspecified organ involvement status M32.9 Systemic lupus erythematosus organ involvement: unspecified Systemic lupus erythematosus type: unspecified Trigger middle finger of left hand M65.332 Trigger finger location: middle finger Osteopenia, unspecified location M85.80 Osteopenia location: unspecified Time Spent (min) 35
[2024-12-29 10:06] VITALS: BP 100/70; PULSE 65; O2SAT 98; BMI 21.7
--- OUTSIDE RECORDS SUMMARY | 2024-12-29 10:31 | XMS_ITS | Clinical Summary ---
Author Organization [facility] [place] [address] Care Team Providers Care Dental Equipment Repairer Name Role Phone Fausto Cantu MD Primary Care Provider [phone] Allergies Active Allergy Reactions Criticality Noted Date Comments Penicillins Rash 04/04/2021 Rash many years ago, allergy testing did not show an allergy Medications Cyanocobalamin Powder Take 1 capsule by mouth. 8 Active albuteroL 90 mcg/actuation HFA Aerosol Inhaler Inhale 2 puffs into the lungs. 9 Active betamethasone dipropionate (DIPROLENE) 0.05 % Cream 1 Active cetirizine (ZyrTEC) 10 mg Tablet Take 2 tablets by mouth. 8 Active EPINEPHrine (Auvi-Q) 0.3 mg/0.3 mL Auto-Injector inject contents of one pen into anterior thigh as needed severe allergic reaction and go to ER 8 Active fluticasone propion-salmeter oL (ADVAIR) 100-50 mcg/dose Disk with Device Inhale 1 puff into the lungs. 0 Active fluticasone propionate (CUTIVATE) 0.05 % Cream 1 Active nicotine (NICODERM CQ) 14 mg/24 hr Patch 24 hr Apply 1 patch to dry skin and replace after 24 hours for 28 days. DO NOT SMOKE WHILE WEARING PATCH. 9 Active propranoloL (Inderal) 10 mg Tablet Take 1 tablet by mouth. 0 Active Coenzyme Q10 200 mg Capsule Take 1 capsule by mouth. 9 Active buPROPion XL (Wellbutrin XL) 150 mg Tablet Extended Release 24 hr 1 Active fluocinonide (LIDEX) 0.05 % Solution 1 Active cholecalciferol, Vitamin D3, 25 mcg (1,000 unit) Capsule Take 2 tablets by mouth. 0 Active ibuprofen (Advil) 200 mg Tablet Take by mouth. 8 Active fluticasone propionate (FLONASE) 50 mcg/actuation [place], Suspension 1 spray. 8 Active metHOTREXate 2.5 mg Tablet Take 4 tablets (10 mg) by mouth once a week for 30 days. 48 tablet 3 1 Active Additional Information Patient taking differently: 15 mgOral WEEKLY, Reported on 07/06/2021 hydrOXYchloroQUI NE (Plaquenil) 200 mg TabletIndication s:Lupus Take 1 tablet by mouth 2 times daily. 180 tablet 2 2 Active Social History Tobacco Use Types Packs/Day Years Used Date Smoking Tobacco: Some Days Smokeless Tobacco: Current Comments Unknown Sex and Gender Information Value Date Recorded Sex Assigned at Not on file Legal Sex Female 7:04 AM EST Gender Identity Not on file Sexual Orientation Not on file Last Filed Vital Signs Vital Sign Reading Time Taken Comments Blood Pressure 143/81 04/04/2021 1:51 PM EST Pulse 94 04/04/2021 1:51 PM EST Temperature 36.4 C (97.5 F) 04/04/2021 1:51 PM EST Respiratory Rate - - Oxygen Saturation - - Inhaled Oxygen Concentration - - Weight 61.7 kg (136 lb) 04/04/2021 1:51 PM EST Height 162.6 cm (5' 4 ) 04/04/2021 1:51 PM EST Body Mass Index 23.34 04/04/2021 1:51 PM EST Plan of Treatment Health Maintenance Due Date Last Done Comments CT Colonography 1963 Colonoscopy 1963 Colorectal Cancer Screening 1963 FIT DNA 1963 FIT 1963 Sigmoidoscopy (10 year) with FIT yearly 1963 Sigmoidoscopy 1963 HIV screen 1981 Hepatitis C Screening 1981 Lipid Screening 1981 Tetanus/Diphtheria/Pertussis Vaccines (1 - Tdap) 01/11 HPV test 1993 PAP Smear 1993 Breast Cancer Share Decision Needed 2003 Breast Cancer screening 2003 Pneumoccocal Vaccine: 50+ (1 of 1 - PCV) 2013 Zoster vaccine (1 of 2) 2013 Advance Directive 2018 Covid-19 Vaccine (2 - season) 2024 Influenza (Flu) vaccine (1 o f 1 - Influenza standard series) 01/25/2025 Insurance Care Teams Dental Equipment Repairer Relationship Specialty Start Date End Date Fausto Cantu MD [address] [facility] [place] [id number] PCP - General Family Medicine 09/12/18
--- OUTSIDE RECORDS SUMMARY | 2024-12-29 10:32 | XMS_ITS | Encounter Summary ---
Author Organization [facility] Address [address] [facility] [address] [place] [phone] Phone Care Team Providers Care Metal Handler Name Role Phone Fausto Cantu MD Primary Care Provider [phone]- [phone] Pcp, Unknown Unavailable Unavailable Encounter Details Date Type Department Care Team (Latest Contact Info) Description 12/04/2024 Transcribe Orders Virtual Department [address] [place] [address] Fausto Cantu MD [address] [place] [id number] Chronic left hip pain (Primary Dx); Chronic pain of left knee Social History Tobacco Use Types Packs/Day Years Used Date Smoking Tobacco: Former Cigarettes 0.3 30 Smokeless Tobacco: Never Comments:Quit 12/08/2023 Alcohol Use Standard Drinks/Week Comments Never 0 (1 standard drink = 0.6 oz pur e alcohol) Education Answer Date Recorded Are you interested in more education? Not on yemi e 10/07/2022 Are you concerned about learning? Not on file 10/07/2022 No 10/07/2022 No 10/07/2022 Digital Access Answer Date Recorded No 10/21/2022 No 10/21/2022 Reliable internet access at home? Not on file 10/21/2022 Device with a working camera? Not on file Intimate Partner Violence Answer Date R ecorded Are you denied basic needs s uch as food, clothing, or medical care? No 04/29/2024 In the past 12 months have y ou been in a relationship with a person who hurts, threatens, or tries to control you? No 04/29/2024 Are you denied basic needs s uch as food, clothing, or medical care? No 04/29/2024 In the past 12 months have y ou been in a relationship with a person who hurts, threatens, or tries to control you? No 04/29/2024 Comments No Sex and Gender Information Value Date Recorded Sex Assigned at Female 05/30/2020 9:11 AM EST Legal Sex Female 5:56 PM EST Gender Identity Female 05/30/2020 9:11 AM EST Sexual Orientation Something else 02/25/2024 5: 49 AM EDT documented as of this encounter Plan of Treatment Upcoming Encounters Date Type Department Care Team (Late st Contact Info) Description 12/30/2024 11:40 AM EDT Office Visit [facility] [address] [place] [address] 3rd Floor, [address] [place] [phone] Akbar Clark MD [address] [place] [phone] 01/06/2025 10:45 AM EDT Office Visit [facility] [address] [place] [phone] Jan Lopes PA-C [address] [facility], [place], [place] [phone] Ania Holley, PT [address] [place] [address] 01/20/2025 10:45 AM EDT Office Visit [facility] [address] [place] [phone] Jan Lopes PA-C [address] [facility], [place], [place] [phone] Ania Holley, PT [address] [place] [address] 01/27/2025 10:45 AM EDT Office Visit [facility] [address] [place] [address] Jan Lopes PA-C [address] [facility] [address] [facility], [place], [place] [phone] Ania Holley, PT [address] [place] [address] 02/01/2025 12:00 PM EDT Appointment [facility] [address] [place] [address] Fred Young MD [address] [place] [address] 02/10/2025 2:45 PM EDT Office Visit [facility] [address] [address] Hudson Basilio DO [address] [facility], [place], [place] [phone] 03/02/2025 11:15 AM EDT Office Visit [facility] [address] [phone] Catarino Arriaga MD [address] [place] [address] Orthopedics Sports [facility], [place], [place] [phone] documented as of this encounter Results * XR HIP 2 VW LEFT PLUS PELVIS (12/09/2024 9:50 AM EDT) Anatomical Region Laterality Modality Hip, Pelvis Computed Radiogr aphy 12/10/2024 12:5 2 AM EDT Impressions 12/10/2024 12:52 AM EDT Moderate left and mild to moderate right hip osteoarthritis. Partially visualized lumbar spine degenerative change. Narrative 12/10/2024 12:52 AM EDT XR HIP 2 VW LEFT PLUS PELVIS REQUESTED INDICATION: Outside Radiology Order; chronic left knee pain COMPARISON: None FINDINGS: PELVIS: Pelvic ring intact. No displaced fracture. Degenerative changes of the lower lumbar spine, sacroiliac joints, and pubic symphysis. RIGHT HIP: Mild to moderate hip joint space narrowing with subchondral sclerosis and bony proliferative change. LEFT HIP: Moderate hip joint space narrowing with subchondral sclerosis and bony proliferative change. Procedure Note Yuniel Caldwell MD - 12/10/2024 XR HIP 2 VW LEFT PLUS PELVIS REQUESTED INDICATION: Outside Radiology Order; chronic left knee pain COMPARISON: None FINDINGS: PELVIS: Pelvic ring intact. No displaced fracture. Degenerative changes ofthe lower lumbar spine, sacroiliac joints, and pubic symphysis. RIGHT HIP: Mild to moderate hip joint space narrowing with subchondralsclerosis and bony proliferative change. LEFT HIP: Moderate hip joint space narrowing with subchondral sclerosisand bony proliferative change. IMPRESSION: Moderate left and mild to moderate right hip osteoarthritis. Partially visualized lumbar spine degenerative change. us Fausto Cantu MD IMG XR PELVIS Final Resu lt * XR KNEE 4 OR MORE VIEWS (LEFT) (12/09/2024 9:49 AM EDT) Anatomical Region Laterality Modality Knee Left Computed Radiogr aphy 12/09/2024 11:4 9 PM EDT Impressions 12/10/2024 12:52 AM EDT Left knee tricompartmental osteoarthritis, moderate in the patellofemoral compartment. Healed patellar fracture. Narrative 12/10/2024 12:52 AM EDT XR KNEE 4 OR MORE VIEWS (LEFT) Referring clinician's provided indication for this examination in Epic: Outside Radiology Order; chronic left knee pain COMPARISON: None FINDINGS: There are postsurgical changes from patellar fracture ORIF secured with 2 K wires, and [id number] tension band, and a fractured tension band around the periphery. Fracture lines are no longer evident and are likely fully healed. There is moderate posterior moderate patellofemoral osteoarthritis. Mild medial and lateral compartment joint space narrowing with marginal spurring is present. There is chondrocalcinosis in the medial and lateral compartments. Procedure Note Yuniel Caldwell MD - 12/10/2024 XR KNEE 4 OR MORE VIEWS (LEFT) Referring clinician's provided indication for this examination in [facility]:Outside Radiology Order; chronic left knee pain COMPARISON: None FINDINGS: There are postsurgical changes from patellar fracture ORIF secured with 2K wires, and [id number] tension band, and a fractured tension bandaround the periphery. Fracture lines are no longer evident and are likelyfully healed. There is moderate posterior moderate patellofemoral osteoarthritis. Mildmedial and lateral compartment joint space narrowing with marginalspurring is present. There is chondrocalcinosis in the medial and lateralcompartments. IMPRESSION: Left knee tricompartmental osteoarthritis, moderate in the patellofemoralcompartment. Healed patellar fracture. Fausto Cantu MD IMG XR LOWER EXTREMITY Fin al Result documented in this encounter Visit Diagnoses Diagnosis Chronic left hip pain- Primary Chronic pain of left knee Chronic pain of left knee Chronic left hip pain documented in this encounter Care Teams Metal Handler Relationship Specialty Start Date End Date Fausto Cantu MD [address] [place] [phone] PCP - General Family Medicine 05/30/20 Pcp, Unknown 05/30/20 documented as of this encounter Additional Source Comments The information contained in this document represents components of the legal health record. It is not the complete legal health record.[facility]
--- OUTSIDE RECORDS SUMMARY | 2024-12-29 10:32 | XMS_ITS | Clinical Summary ---
Author Organization [employer] Address [address] [facility] [address] [place] [address] Care Team Providers Care Substance Abuse Counselor Name Role Phone Gabriela Ambrose Unavailable Unavailable [...] Date Last Done Comments CT Colonography 1963 Depression Screening 1963 FIT DNA/Cologuard 1963 FIT 1963 FOBT 1963 Sigmoidoscopy 1963 Disability Screening 1963 Alcohol/Substance Use Screening 1975 Tobacco Screening 1975 Pap Smear 01/12/1984 Cervical Cancer Screening 1993 HPV/Cotest 1993 Mammogram 07/31/2024 07/31/2022, 11/2022, 01/22/2022, Additional history exists Influenza Vaccine (#1) 2025 , 01/17/2023, 01/19/2022, Additional history exists DTaP/Tdap/Td Vaccines (2 - Td or Tdap) 08/26/2028 08/26/2018, 07/19/2004 Colonoscopy 04/04/2032 04/04/2022, 04/04/2022 Colorectal Cancer Screening 04/04/2032 RSV Patients and Patients Aged 60 years or older (1 - 1-dose 75+ series) 2038 Zoster Vaccines Completed 11/13/2018, 08/26/2018 Pneumococcal Vaccine: 50+ Years Completed 01/19/2022, 01/31/2018 COVID-19 Vaccine Completed 01/31/2024, , 03/02/2022, Additional history exists HIB Vaccines Aged Out [...] patient's age to complete this topic Meningococcal B Vaccine Aged Out No l onger eligible based on patient's age to complete this topic Meningococcal Vaccine Aged Out No clau carmelo eligible based on patient's age to complete this topic RSV under 20 months Aged Out No longe r eligible based on patient's age to complete this topic Rotavirus Vaccines Aged Out No longer eligible based on patient's age to complete this topic Care Teams Substance Abuse Counselor Relationship Specialty Start Date End Date Gabriela Ambrose Community Health Worker 07/04/22
== END 2024-12-29 11:03 | disposition home or self-care (01) ==
LOC: HO.RHES 10:00
PROVIDERS: Visit Provider Internal Medicine Rheumatology
DX: L93.0 Discoid lupus erythematosus (principal); M65.332 Trigger finger, left middle finger; M85.80 Other specified disorders of bone density and structure, unspecified site
CPT/HCPCS: 99214

== ENCOUNTER 2025-05-04 09:58 | Outpatient (AMB) | payer BC, SELFPAY ==
--- NOTE | 2025-05-04 09:59 | A.OFFVIS_ITS ---
Vital Signs 05/04/25 10:00 Height 5 ft 5 in Weight 130 lb 8.218 oz BMI 21.7 BP 130/78 Blood Pressure Location Rt brachial Position Sitting Pulse 77 Pulse Source Pulse Oximeter Pulse Oximetry (%) 98 Oxygen Delivery Method Room Air Intake Visit Reasons: 4 months Intake Note: Pt states that she is here for a follow up for discoid lupus. Accompanied by: Self / Same As Patient Allergies bee pollen Allergy (Unknown, Verified 05/04/25 10:00) Unknown Penicillins Allergy (Unknown, Verified 05/04/25 10:00) unk HPI HPI 4 months: Details: Skin has been controlled on Benlysta and hydroxychloroquine. No new rash. Denies fevers, dyspnea, pleurisy, oral ulcers, urinary symptoms, Raynaud's phenomenon. Trigger finger left 3rd and 4th has reoccurred 1-2 times a week. She is now manually extending it when it locks up. Scalp lesion around her occipital area may ulcerate at times. Is associated with pruritus. She is seeing a new orthopedic surgeon for right knee pain. She saw orthopedic surgery for left hip pain and was told that she has osteoarthritis in that she is a candidate for surgery. She is not ready for surgery. She was diagnosed with nasal septum deviation and is planning surgery in May. She started a new hobby with potting. 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 She saw Dr. Barber at [facility]. CBC revealed a eosinophilia. She has repeating CBC today. [facility] Surgical History History of arthroscopy of left shoulder Physical Exam Vital Signs: Last Vital Signs Pulse 77 05/04/25 10:00 BP 130/78 05/04/25 10:00 Pulse Ox 98 05/04/25 10:00 Oxygen Delivery Method Room Air 05/04/25 10:00 BMI result Body Mass Index 21.7 Const Other: General: Comfortable CVS: RRR Respiratory: clear to auscultation bilaterally. Good respiratory effort Skin: Telangiectasia on cheeks present. MSK: Tender left 3rd-4th palmar aspect of MCP. No nodule present. No triggering observed. No synovitis of any joint. Left arm internal rotation is not full. Rest of range of motion joint exam is normal. Assessment & Plan Assessment & Plan (1) Discoid lupus erythematosus: Comment: Affecting face, scalp, ears, upper extremities is controlled on Benlysta SC and hydroxychloroquine. 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 She also has a discoid lesion occipital scalp that has not improved with topical betamethasone and will ulcerate intermittently. She does not have clinical signs of systemic SLE. Labs from August 2024 reveal hypocomplementemia, which have resolved on most recent labs from February. Rheumatology history: LC negative. Diagnosed on skin biopsy 09/2020 (Dermatology at [facility]). HCQ 09/2020-. failed methotrexate SC ([id number]) combination with hydroxychloroquine and she had transaminitis secondary to methotrexate use. Benlysta 08/2023-. Code(s): L93.0 - Discoid lupus erythematosus Category: Medical Plan: Labs to assess lupus disease activity and drug monitoring due every 6 months Continue subcutaneous Benlysta injection every week Continue hydroxychloroquine 300 mg daily. 08/14/2022 OCT and VF wnl. 02/11/2023 OCT wnl. 04/2024 OCT ok, VF 1 area of increased threshold left. She has f/u every 6 months. We will re-evaluate her immunosuppressive agents at that time as she would be on hydroxychloroquine for 5 years and Benlysta for 2 years in August 2025. Return to clinic in 4 months (2) Systemic lupus erythematosus: Code(s): M32.9 - Systemic lupus erythematosus, unspecified Category: Medical Qualifiers: Systemic lupus erythematosus organ involvement: unspecified Systemic lupus erythematosus type: unspecified Qualified Code(s): M32.9 - Systemic lupus erythematosus, unspecified Plan: Monitoring as above (3) Trigger finger of left hand: Comment: Initially resolved with cortisone injection from August 2024. Recurrent but tolerable. History: L 3rd and 4th trigger finger cortisone injection October 2023. Left 3rd trigger finger cortisone injection August 2024. Code(s): M65.30 - Trigger finger, unspecified finger Category: Medical Qualifiers: Trigger finger location: middle finger Qualified Code(s): M65.332 - Trigger finger, left middle finger Plan: Continue splinting Continue PT exercises learned from the past Return to clinic in 3-4 months or sooner if needed for cortisone injection Orders: Orders Complement C3 4 Months M32.9 - Systemic lupus erythematosus, unspecified Aspartate Amino Transferase 4 Months M32.9 - Systemic lupus erythematosus, unspecified Complement C4 4 Months M32.9 - Systemic lupus erythematosus, unspecified Creatinine 4 Months M32.9 - Systemic lupus erythematosus, unspecified UA ClnCatch+Micro w/rflx Cult 4 Months M32.9 - Systemic lupus erythematosus, unspecified C Reactive Protein 4 Months M32.9 - Systemic lupus erythematosus, unspecified Complete Blood Count Auto Diff 4 Months M32.9 - Systemic lupus erythematosus, unspecified Erythrocyte Sedimentation Rate 4 Months M32.9 - Systemic lupus erythematosus, unspecified Protein Creatinine Ratio, Ur 4 Months M32.9 - Systemic lupus erythematosus, unspecified Alanine Aminotransferase 4 Months M32.9 - Systemic lupus erythematosus, unspecified Anti DNA DS Antibody 4 Months M32.9 - Systemic lupus erythematosus, unspecified Coding Level of Care Code Est Pt Level 4 (62244) Complex visit Add On G2211 Diagnoses Discoid lupus erythematosus L93.0 Systemic lupus erythematosus, unspecified SLE type, unspecified organ involvement status M32.9 Systemic lupus erythematosus organ involvement: unspecified Systemic lupus erythematosus type: unspecified Trigger middle finger of left hand M65.332 Trigger finger location: middle finger
[2025-05-04 10:00] VITALS: BP 130/78; PULSE 77; O2SAT 98; BMI 21.7
== END 2025-05-04 10:53 | disposition home or self-care (01) ==
LOC: HO.RHES 09:59
PROVIDERS: Visit Provider Internal Medicine Rheumatology
DX: M32.9 Systemic lupus erythematosus, unspecified (principal); M65.332 Trigger finger, left middle finger
CPT/HCPCS: 99214